=== PATIENT | female | born 1995 | race Caucasian/White ===

== ENCOUNTER 2022-03-02 12:48 | Outpatient (CLI) | payer OTHER, SELFPAY ==
--- NOTE | 2022-03-02 13:00 | CRLHL7_ITS ---
For Patients: As a result of the Century Cures Act, medical imaging exams and procedure reports are released immediately into your electronic medical record. You may view this report before your referring provider. If you have questions, please contact your health care provider. INDICATION: First trimester scan, establish dates. COMPARISON: None. TECHNIQUE: Real-time mars-scale imaging of the pelvis was performed. FINDINGS: There is a twin intrauterine gestation. Regarding twin A, a pole is present measuring 1.5 cm with a sonographic gestational age of 7 weeks 6 days and a sonographic due date of 10/13/2022. heart rate measures 168 beats per minute. Normal appearance of the gestational sac and normal yolk sac measuring 3 millimeters. Regarding twin B, the pole is present measuring 4 millimeters, 6 weeks 0 days, absent heart rate. Gestational sac is small measuring 9 millimeters. Perigestational hemorrhage present measuring 2.8 x 1.2 x 1.9 cm. Corpus luteal cyst left ovary measuring 2.0 x 1.5 x 1.7 cm. Unremarkable right ovary. No ectopic . IMPRESSION: Twin intrauterine gestation. Living twin A, 7 weeks 6 days and sonographic due date 10/13/2022. Nonviable twin B. Left fundal subchorionic hemorrhage measuring 2.8 x 1.2 x 1.9 cm. Dictated by Gibran Mayfield MD @ 03/02/2022 2:48:31 PM (Electronically Signed)
== END 2022-03-02 12:49 | disposition home or self-care (01) ==
LOC: US 12:51
PROVIDERS: Visit Provider Physician Assistant
DX: Z34.91 Encounter for supervision of normal pregnancy, unspecified, first trimester (principal); Z3A.08 8 weeks gestation of pregnancy
CPT/HCPCS: 76817; 86592; 86703; 86762; 86787; 86803; 86850; 86900; 86901; 87086; 87340; 87491; 87591

== ENCOUNTER 2022-04-26 14:32 | Outpatient (CLI) | payer OTHER, SELFPAY ==
[2022-04-26 18:54] LABS: Alanine Aminotransferase* 33 U/L (4-35); Aspartate Amino Transferase* 26 U/L (12-35); Blood Urea Nitrogen* 6 mg/dL (5-24); Creatinine* 0.4 mg/dL (0.5-1.5); Estimated Glomerular Filt Rate 139 ml/min; Uric Acid* 3.5 mg/dL (2.2-8.4)
[2022-04-26 19:44] LABS: Thyroid Stimulating Hormone* < 0.015 uIU/mL (0.270-4.20)
[2022-04-26 19:56] LABS: Total Protein Urine 20 mg/dL
[2022-04-26 19:57] LABS: Creatinine Urine 31.5 mg/dL
== END 2022-04-26 14:33 | disposition home or self-care (01) ==
PROVIDERS: Visit Provider Obstetrics & Gynecology
DX: O10.912 Unspecified pre-existing hypertension complicating pregnancy, second trimester (principal); Z3A.16 16 weeks gestation of pregnancy
CPT/HCPCS: 81420; 82565; 82570; 84156; 84439; 84443; 84450; 84460; 84520; 84550

== ENCOUNTER 2022-04-28 11:43 | Outpatient (CLI) | payer OTHER, SELFPAY ==
[2022-04-30 22:35] LABS: Free T3 4.3 pg/mL (2.5-4.3)
[2022-05-01 01:44] LABS: Thyroid Stimulating IgG (TSI) 0.13 IU/L (<=0.54)
== END 2022-04-28 11:44 | disposition home or self-care (01) ==
LOC: LONREF 11:43
PROVIDERS: Visit Provider Obstetrics & Gynecology
DX: E05.90 Thyrotoxicosis, unspecified without thyrotoxic crisis or storm (principal)
CPT/HCPCS: 84445; 84481

== ENCOUNTER 2022-05-03 08:43 | Outpatient (CLI) | payer OTHER, SELFPAY ==
[2022-05-03 13:48] LABS: Total Protein Urine 17 mg/dL
[2022-05-03 13:52] LABS: Creatinine Urine 49.5 mg/dL
[2022-05-05 13:38] LABS: Collection Time Urine 24 Hours; Total Protein 24 Hour Urine 442 mg/dL; Total Volume 24 Hour Urine 2600 ml; Urine Creatinine mg/24 Hour 0 mg/Day
== END 2022-05-03 08:44 | disposition home or self-care (01) ==
LOC: LONREF 08:43
PROVIDERS: Visit Provider Obstetrics & Gynecology
DX: O10.919 Unspecified pre-existing hypertension complicating pregnancy, unspecified trimester (principal)
CPT/HCPCS: 82570; 84156

== ENCOUNTER 2022-05-26 14:27 | Outpatient (CLI) | payer OTHER, SELFPAY | END 2022-05-26 14:28 | disposition home or self-care (01) | LOC: US 14:27 | PROVIDERS: Visit Provider Pediatrics Neonatal-Perinatal Medicine | DX: O10.912 Unspecified pre-existing hypertension complicating pregnancy, second trimester (principal); Z3A.20 20 weeks gestation of pregnancy | CPT/HCPCS: 76811 ==

== ENCOUNTER 2022-05-26 15:43 | Outpatient (CLI) | payer OTHER, SELFPAY | END 2022-05-26 15:44 | disposition home or self-care (01) | PROVIDERS: Visit Provider Obstetrics & Gynecology | DX: O10.912 Unspecified pre-existing hypertension complicating pregnancy, second trimester (principal); Z3A.20 20 weeks gestation of pregnancy | CPT/HCPCS: 84439; 84443; 84481 ==

== ENCOUNTER 2022-06-21 12:50 | Outpatient (CLI) | payer OTHER, SELFPAY ==
--- NOTE | 2022-06-21 13:00 | CRLHL7_ITS ---
For Patients: As a result of the Cures Act, medical imaging exams and procedure reports are released immediately into your electronic medical record. You may view this report before your referring provider. If you have questions, please contact your health care provider. INDICATION: F/U NOSE/LIPS ?CLEFT LIP/PALATE? COMPARISON: 03/02/2022 TECHNIQUE: Real time mars scale imaging of the fetus was performed. FINDINGS: Sonographic imaging demonstrates a single living intrauterine gestation. Fetus demonstrates a regular cardiac rate of 152 beats per minute. Fetus has a breech position. The placenta lies anteriorly. Amniotic fluid volume appears normal and there is a single deepest vertical pocket: 4.6 cm. The estimated weight is 611gm which lies at the 20th %. BPD 7th percentile. HC less than 3rd percentile. AC 37th percentile. FL 17th percentile. The HC/AC ratio measures 1.06 range (1.05-1.21). IMPRESSION: Sonographic gestational age 23 weeks 2 days and sonographic due date 10/16/2022. Sonographic age is 6 days behind the clinical age. Estimated weight 28th percentile. Abdominal circumference 37th percentile. HC less than 3rd percentile. The nose and lips appear normal, as visualized, without evidence of cleft lip or palate today`s study. Dictated by Gibran Mayfield MD @ 06/22/2022 10:56:30 AM (Electronically Signed)
--- NOTE | 2022-06-21 16:00 | CRLHL7_ITS ---
For Patients: As a result of the Century Cures Act, medical imaging exams and procedure reports are released immediately into your electronic medical record. You may view this report before your referring provider. If you have questions, please contact your health care provider. INDICATION: HYPERTHYROIDISM IN COMPARISON: none TECHNIQUE: Hernández scale and color Doppler images were acquired of the thyroid gland. FINDINGS: The thyroid gland demonstrates normal mildly heterogeneous echogenicity and has a smooth outer contour. The right lobe measures 5.8 x 2.2 x 2.1 cm and the left lobe measures 5.1 x 1.9 x 2.2 cm in size. The isthmus measures 4 millimeters. There is a solid and cystic nodule within the inferior pole of the right thyroid lobe measuring 2.5 x 1.8 x 2.9 cm. Similar solid and cystic nodule midportion left thyroid lobe measuring 2.3 x 1.3 x 1.6 cm. The color Doppler images demonstrate normal vascularity. There is no evidence of cervical lymphadenopathy or parathyroid mass. IMPRESSION: Bilateral TR 3 nodules which could be followed in 1 year. Dictated by Gibran Mayfield MD @ 06/22/2022 11:00:20 AM (Electronically Signed)
== END 2022-06-21 12:51 | disposition home or self-care (01) ==
LOC: US 12:50
PROVIDERS: Visit Provider Obstetrics & Gynecology
DX: O99.282 Endocrine, nutritional and metabolic diseases complicating pregnancy, second trimester (principal); E05.90 Thyrotoxicosis, unspecified without thyrotoxic crisis or storm; Z3A.00 Weeks of gestation of pregnancy not specified
CPT/HCPCS: 76536; 76816; 84439; 84443

== ENCOUNTER 2022-06-21 15:46 | Outpatient (CLI) | payer OTHER, SELFPAY | END 2022-06-21 15:47 | disposition home or self-care (01) | LOC: NFLDREF 06-22 01:15 | PROVIDERS: PCP Obstetrics & Gynecology; Referring Provider Obstetrics & Gynecology; Visit Provider Obstetrics & Gynecology | DX: O99.280 Endocrine, nutritional and metabolic diseases complicating pregnancy, unspecified trimester (principal); E05.90 Thyrotoxicosis, unspecified without thyrotoxic crisis or storm; E04.1 Nontoxic single thyroid nodule; O10.919 Unspecified pre-existing hypertension complicating pregnancy, unspecified trimester | CPT/HCPCS: 84439; 84443; 84481 ==

== ENCOUNTER 2022-08-25 14:00 | Outpatient (CLI) | payer OTHER, SELFPAY ==
--- NOTE | 2022-08-25 14:00 | CRLHL7_ITS ---
For Patients: As a result of the Century Cures Act, medical imaging exams and procedure reports are released immediately into your electronic medical record. You may view this report before your referring provider. If you have questions, please contact your health care provider. INDICATION: CHRONIC HYPERTENSION COMPARISON: 08/18/2022 TECHNIQUE: Real time mars scale imaging of the fetus was performed. Without non-stress testing. FINDINGS: Sonographic imaging demonstrates a single living intrauterine gestation. Fetus demonstrates a regular cardiac rate of 149 beats per minute. Fetus has a vertex position. The amniotic fluid volume appears upper limits of normal and there is a single deepest pocket measurement of 8.4 cm. SANTOS 23.4 cm. The fetus was active and demonstrated normal breathing movements. There was normal flexion and extension of the trunk and extremities. IMPRESSION: Normal biophysical profile score of 8 out of 8. Dictated by Gibran Mayfield MD @ 08/25/2022 3:06:14 PM (Electronically Signed)
== END 2022-08-25 14:01 | disposition home or self-care (01) ==
LOC: US 14:01
PROVIDERS: Visit Provider Obstetrics & Gynecology
DX: O10.919 Unspecified pre-existing hypertension complicating pregnancy, unspecified trimester (principal)
CPT/HCPCS: 76819

== ENCOUNTER 2022-09-02 12:54 | Outpatient (CLI) | payer OTHER, SELFPAY ==
--- NOTE | 2022-09-02 13:00 | CRLHL7_ITS ---
For Patients: As a result of the Century Cures Act, medical imaging exams and procedure reports are released immediately into your electronic medical record. You may view this report before your referring provider. If you have questions, please contact your health care provider. INDICATION: Chronic hypertension. Assess well-being. COMPARISON: August 25, 2022. August 18, 2022. TECHNIQUE: Real time mars scale imaging of the fetus was performed. Without non-stress testing. FINDINGS: Sonographic imaging demonstrates a single living intrauterine gestation. Fetus demonstrates a regular cardiac rate of 159 beats per minute. Fetus has a vertex orientation with spine to the maternal left side. The amniotic fluid volume appears normal and there is a single deepest pocket measurement of 7.3 cm. The fetus was active and demonstrated normal breathing movements. There was normal flexion and extension of the trunk and extremities. IMPRESSION: Normal biophysical profile score of 8 out of 8. Dictated by Nils Cox MD @ 09/02/2022 2:34:12 PM (Electronically Signed)
== END 2022-09-02 12:55 | disposition home or self-care (01) ==
LOC: US 12:54
PROVIDERS: Visit Provider Obstetrics & Gynecology
DX: O10.919 Unspecified pre-existing hypertension complicating pregnancy, unspecified trimester (principal)
CPT/HCPCS: 76819

== ENCOUNTER 2022-09-09 13:46 | Outpatient (CLI) | payer OTHER, SELFPAY ==
--- NOTE | 2022-09-09 14:00 | CRLHL7_ITS ---
For Patients: As a result of the Century Cures Act, medical imaging exams and procedure reports are released immediately into your electronic medical record. You may view this report before your referring provider. If you have questions, please contact your health care provider. INDICATION: CHRONIC HTN COMPARISON: 09/02/2022 TECHNIQUE: Real time mars scale imaging of the fetus was performed. Without non-stress testing. FINDINGS: Sonographic imaging demonstrates a single living intrauterine gestation. Fetus demonstrates a regular cardiac rate of 159 beats per minute. Fetus has a vertex position. The amniotic fluid volume appears normal and there is a single deepest pocket measurement of 10.3 cm. SANTOS 21.0 cm. The fetus was active and demonstrated normal breathing movements. There was normal flexion and extension of the trunk and extremities. IMPRESSION: Normal biophysical profile score of 8 out of 8. Dictated by Gibran Mayfield MD @ 09/09/2022 3:06:43 PM (Electronically Signed)
== END 2022-09-09 13:47 | disposition home or self-care (01) ==
PROVIDERS: Visit Provider Obstetrics & Gynecology
DX: O10.919 Unspecified pre-existing hypertension complicating pregnancy, unspecified trimester (principal)
CPT/HCPCS: 76819; 87081; 87653

== ENCOUNTER 2022-09-13 13:49 | Outpatient (CLI) | payer OTHER, SELFPAY ==
--- NOTE | 2022-09-13 14:00 | CRLHL7_ITS ---
For Patients: As a result of the Century Cures Act, medical imaging exams and procedure reports are released immediately into your electronic medical record. You may view this report before your referring provider. If you have questions, please contact your health care provider. INDICATION: Hypertension TECHNIQUE: Real time mars scale imaging of the fetus was performed. COMPARISON: 09/09/2022 FINDINGS: Sonographic imaging demonstrates a single living intrauterine gestation. Fetus demonstrates a regular cardiac rate of 154 beats per minute. Fetus has a vertex position. The placenta lies anterior. Amniotic fluid volume appears normal and there is a single deepest pocket of 5.8 cm. The estimated weight is 2669gm which lies at the 31st %. On the prior OB ultrasound dated 08/18/2022 the estimated weight was at the 44th percentile. BPD 15th percentile. HC 51st percentile. AC 37th percentile. FL 28th percentile. The fetus was active and demonstrated normal breathing movements. There was normal flexion and extension of the trunk and extremities. IMPRESSION: Normal biophysical profile score 8/8. Sonographic gestational age 35 weeks 4 days and sonographic due date 10/14/2022. Good correlation with dates. Normal interval growth. Estimated weight 31st percentile. Abdominal circumference 37th percentile. Dictated by Gibran Mayfield MD @ 09/13/2022 3:27:02 PM (Electronically Signed)
== END 2022-09-13 13:50 | disposition home or self-care (01) ==
LOC: US 13:50
PROVIDERS: Visit Provider Obstetrics & Gynecology
DX: O10.913 Unspecified pre-existing hypertension complicating pregnancy, third trimester (principal); Z3A.35 35 weeks gestation of pregnancy
CPT/HCPCS: 76816; 76819

== ENCOUNTER 2022-09-23 13:49 | Outpatient (CLI) | payer OTHER, SELFPAY ==
--- NOTE | 2022-09-23 14:00 | CRLHL7_ITS ---
For Patients: As a result of the Century Cures Act, medical imaging exams and procedure reports are released immediately into your electronic medical record. You may view this report before your referring provider. If you have questions, please contact your health care provider. INDICATION: pre-existing hypertension COMPARISON: 09/13/2022 TECHNIQUE: Real time mars scale imaging of the fetus was performed. Without non-stress testing. FINDINGS: Sonographic imaging demonstrates a single living intrauterine gestation. Fetus demonstrates a regular cardiac rate of 163 beats per minute. Fetus has a vertex position. The amniotic fluid volume appears normal and there is a single deepest pocket measurement of 8.7 cm. The fetus was active and demonstrated normal breathing movements. There was normal flexion and extension of the trunk and extremities. IMPRESSION: Normal biophysical profile score of 8 out of 8. Dictated by Gibran Mayfield MD @ 09/23/2022 3:56:47 PM (Electronically Signed)
== END 2022-09-23 13:50 | disposition home or self-care (01) ==
LOC: US 13:50
PROVIDERS: Visit Provider Obstetrics & Gynecology
DX: O10.919 Unspecified pre-existing hypertension complicating pregnancy, unspecified trimester (principal)
CPT/HCPCS: 76819

== ENCOUNTER 2022-09-26 15:58 | Inpatient (IN) | payer OTHER, SELFPAY ==
[2022-09-26] VITALS (16 sets, daily range): BP systolic 119–127; BP diastolic 66–77; PULSE 78–93; RESP 16; TEMP 36.8; O2SAT 90–98; BMI 40.8
[2022-09-26] MEDS: miSOPROStoL 25 MCG/0.25 TABLET VAGINAL ×2 (16:54→21:43)
--- NOTE | 2022-09-26 17:41 | P.LDBA_ITS ---
Subjective History of Present Illness Time Seen by Provider: 17:00 Date Seen: 09/26/22 Narrative: Patient is being admitted to Labor and Delivery for induction of labor secondary to chronic hypertension. She is a 27 year old at 38 0/7 weeks gestation. Her full history and physical was dictated by Dr. Talley on 09/13/2022. Please see this for details. G1 Spouse: Cosme. Baby: Girl! Wren[place] 1. DI/DI twin gestation, spontaneously reduced to alzo Perinatology referral: Follow-up first-trimester ultrasound 03/19/2022: Small gestational sac with no visible 2nd embryo. Intrauterine 10 weeks and 2 days, measurements consistent with established dates for viable embryo. 2. Obesity, BMI 36.5 Hgb A1-C: 5.3% 3. ASCUS Pap with positive HPV, neg for 16 and 18 * Colposcopy 04/26/22: Normal findings * Repeat Pap with HPV testing 4. Suspected chronic HTN. Baseline labs 04/26/22: All normal, aside from protein to creatinine ratio 0.6. * 24 hour urine : 442 mg, elevated at baseline. * RN visit for BP education scheduled * Started on labetalol 100 mg BID on 04/26/22. Adjust to maintain normotensive. * Level 2 US: 05/26/2022, EFW 16th percentile. Growth ultrasound recommended in [address] Parker. * Monthly US for growth (ordered for 28 weeks) * 28 5/7 weeks (07/23/22): cephalic, SDP 6.5 cm, EFW 26%, BPD 3%, HC 11%, AC 28%, FL 41%. * 32 weeks: EFW 1999 g (44%), BPD 12%, HC 16%, AC 76%, FL 18%, SANTOS 20.7 cm. * Weekly testing beginning 32 weeks * Delivery at 37 0/7 - 39 6/7 weeks, unless HTN worsens. Tentatively scheduled on 09/27 at 38w1d 5. Hyperthyroidism on labs from 08/04/22. Subclinical hyperthyroidism on labs from 04/26/22 * Free T3 upper limit of normal, thyroid stimulating antibodies normal. * Repeat TSH, free T3 and free T4 06/21/22: TSH <0.015, free T4 normal at 1.06, normal total T3. * Refer to endocrine for overt hyperthyroidism * Two thyroid nodules on US 06/21/22. Surgery consulted. FNA of larger nodule by Dr. Richmond 08/06/22: BENIGN Colloid nodule with cystic degeneration. * Repeat TSH, free T4 and total T3 at 30 week visit 08/04/22: TSH <0.015, free T4 1.53, total T3 375 (elevated). * Referred to endocrine on 08/12/22: Pt. reports virtual visit on 08/20. Labs drawn 08/21. No Graves Disease. * Per [facility]: Labs showed mild hyperthyroidism. Patient is has normal Free T4 and clinically euthyroid. Endocrine will follow up with nilam thornton in q1-2 weeks. Currently holding off on antithyroid therapy. * With regard to her thyroid nodule: plan to obtain thyroid ultrasound after delivery. 6. Possible midline/right cleft lip seen on level 2 ultrasound * Reassess at follow-up ultrasound in 4 weeks: normal lips. EFW 20%, PBD 7%, HC<3%, AC 37%, FL 17% 7. Velamentous cord insertion * Growth ultrasound at 32 weeks: EFW 1999 g (44%), BPD 12%, HC 16%, AC 76%, FL 18%, SANTOS 20.7 cm. 8. Elevated 1 hr GTT = 147. 3 hr GTT entirely normal. Flu shot: 03/30/22 COVID: Due for booster Tdap: 08/04/22 OB - Problem Based A/P Delivery/Labor/Induction Plan Plan: induction Induction method: per misoprostol protocol OB Result Labs Blood Type: O (+) positive Rubella: immune RPR/VDLR: nonreactive GBS Status: negative HBsAG: negative OB Exam Physical Exam Vital signs: Pulse BP Pulse Ox 93 119/77 97 09/26/22 16:16 09/26/22 16:16 09/26/22 16:19 Detailed Labor and Delivery Exam Patient Gravid: Yes Dilation (cm): 1 Effacement (%): 40 Cervix position: posterior Consistency: firm Fetus (Single) Station: -3 (Ballotable) Amniotic Membrane Status: intact Heart Rate Baseline: 140 Monitor Accelerations: Present Monitor Decelerations: None Usp Variability: Moderate (6-25)
[2022-09-26 19:30] LABS: Basophils Absolute Auto 0.01 K/uL (0.00-0.30); Basophils Percent Auto 0.1 % (0.0-3.0); Eosinophils Absolute Auto 0.09 K/uL (0.00-0.50); Eosinophils Percent Auto 0.8 % (0.0-7.0); Hematocrit 34.8 % (33.0-51.0); Hemoglobin* 11.4 gm/dL (12.0-16.0); Immature Granulocytes Abs Auto 0.01 K/uL (0.00-0.30); Immature Granulocytes Pct Auto 0.1 %; Lymphocytes Percent Auto 15.1 % (20-44); Mean Corpuscular HGB Conc 33 gm/dL (32-36); Mean Corpuscular Hemoglobin 29 pg (26-34); Mean Corpuscular Volume 88 fL (80-100); Monocytes Percent Auto 7.6 % (0.0-11.0); Neutrophils Percent Auto 76.3 % (42.0-72.0); Platelet Count* 176 K/uL (140-440); RDW Coefficient of Variation % 13.2 % (11.5-15.5); Red Blood Count 3.97 m/uL (4.00-5.20); White Blood Count* 10.74 K/uL (4.50-11.00)
[2022-09-26 19:32] LABS: Slide Review Reflex No
[2022-09-26] MEDS: hydrOXYzine pamoate 25 MG CAPSULE 100 MG PO (20:57)
[2022-09-26] MEDS: LABETALOL HCL 100 MG TABLET PO (20:59)
[2022-09-26] MEDS: MORPHINE 10 MG/ML inj IM (21:00)
[2022-09-27] VITALS (99 sets, daily range): BP systolic 109–146; BP diastolic 53–92; PULSE 76–115; RESP 16; TEMP 36.5–38; O2SAT 94–100
[2022-09-27] MEDS: LACTATED RINGERS 1000 ML 1,000 ML 125 ML IV ×4 (04:24→10:32)
--- NOTE | 2022-09-27 06:59 | PM.OBPNL ---
Subjective Time Seen by Provider: 06:59 Date Seen: 09/27/22 Narrative: Patient is comfortable this morning. Only had 2 doses misoprostol overnight due to periodic variables and periods of decreased variability. Objective Vital Signs: Last Vital Signs Temp 98.3 F 09/27/22 04:03 Pulse 93 09/27/22 04:03 Resp 16 09/27/22 04:03 BP 126/70 09/27/22 04:03 Pulse Ox 96 09/27/22 04:04 Pelvic Exam Dilation (cm): 2 Effacement (%): 50 Station: -2 Comments: mid position, soft Contractions Monitor mode: External Contraction Frequency: 2-4 minutes Contraction pattern: Irregular Contraction intensity: Mild Assessment Assessment: induction ongoing Station: -2 (Ballotable) Status: Category l Heart Rate Baseline: 140 Monitor Accelerations: Present Monitor Decelerations: None Plan Plan: Hendrix score 8. Will start pitocin.
[2022-09-27] MEDS: OXYTOCIN 30 unit/500 ML in NS 30 UNIT/500 ML BAG IVPB ×2 (07:33→12:37)
--- NOTE | 2022-09-27 09:47 | P.OBPN_ITS ---
Subjective Time Seen by Provider: 08:30 Date Seen: 09/27/22 Objective Vital Signs: Last Vital Signs Temp 98.9 F 09/27/22 07:20 Pulse 96 09/27/22 09:45 Resp 16 09/27/22 07:20 BP 127/66 09/27/22 09:45 Pulse Ox 99 09/27/22 09:43 Pelvic Exam Dilation (cm): 3 Effacement (%): 80 Station: -2 Contractions Monitor mode: External Contraction pattern: Irregular Contraction intensity: Mild Assessment Station: -2 (Ballotable) Amniotic Membrane Status: SROM (0815) Status: Category l Heart Rate Baseline: 140 Interior Plant Caretaker Variability: Moderate (6-25) Monitor Accelerations: Present Monitor Decelerations: None Plan Plan: - Assessed patient due to SROM - Scalp clip requested as it was very difficult to trace fetus with EFM. Discussed with patient about risk, benefits, and alternatives of scalp clip. Verbal consent obtained and scalp clip was placed without complications. - Patient currently comfortable but will eventually desire epidural. Epidural PRN.
[2022-09-27] MEDS: ROPIVACAINE 0.2% 100 ml 100 ML 12 MG EPIDURAL (09:50)
--- NOTE | 2022-09-27 09:55 | P.ANBPRC_ITS ---
[facility] Surgical History History of tonsillectomy ?Z90.89 - Acquired absence of other organs (ICD-10) Social History Narrative: insurance sales professional. . Nonsmoker. What is your current living situation?: I presently have a place to live Problems where you live: pests, such as bugs, ants, or mice In the past 12 months, utilities in danger of being shut off: no In the past 12 mos, have been you worried that your food would run out before you had money to buy more?: never true In the past 12 mos, the food you bought just didn't last and you didn't have m oney to buy more?: never true Smoking Status: Never smoker How often does anyone, including family, friends and others, physically hurt you : never How often does anyone, including family, friends and others, insult or talk down to you: never How often does anyone, including family, friends and others, threaten you with harm: never How often does anyone, including family, friends and others, scream or curse at you: never Little interest or pleasure in doing things: several days Feeling down, depressed, or hopeless: not at all Meds Home Medications and Allergies Home Medications Medication Instructions Recorded Confirmed Type aspirin 81 mg capsule 81 mg PO QDAY 04/26/22 09/26/22 History prenat.vits,tee,umw-kllo-bxilb 1 tab PO QDAY 04/26/22 09/26/22 History calcium carbonate 200 mg calcium 200 mg PO BID 06/21/22 09/26/22 History (500 mg) chewable tablet (Tums) Allergies Allergy/AdvReac Type Severity Reaction Status Date / Time No Known Drug Allergies Allergy Verified 09/23/22 14:59 Results Labs Labs: Laboratory Results - last 24 hr 09/26/22 19:23 WBC 10.74 RBC 3.97 L Hgb 11.4 L Hct 34.8 MCV 88 MCH 29 MCHC 33 RDW Coeff of Rashi 13.2 Plt Count 176 Neut % (Auto) 76.3 H Lymph % (Auto) 15.1 L [place] % (Auto) 7.6 Eos % (Auto) 0.8 Baso % (Auto) 0.1 Neut # (Auto) 8.20 H Lymph # (Auto) 1.60 [place] # (Auto) 0.80 Eos # (Auto) 0.09 Baso # (Auto) 0.01 Abs Immat Gran (auto) 0.01 Imm/Tot Granulo (auto) 0.1 Blood Type O Positive Antibody Screen NEGATIVE Vital Signs Vital Signs: Last Vital Signs Temp 98.9 F 09/27/22 07:20 Pulse 90 09/27/22 09:53 Resp 16 09/27/22 07:20 BP 126/61 09/27/22 09:53 Pulse Ox 98 09/27/22 09:53 Weight: 100.743 kg Height: 157.48 cm Anesthesia Procedures Epidural Insertion Patient Location: OB Start Time: 09:00 Stop Time: 10:00 Start Date: 09/27/22 Stop Date: 09/27/22 Reason for Block: procedure for pain Patient Position: sitting Performed By: Kavita Salazar Preanesthetic Checklist: IV checked, risks and benefits discussed, monitors and equipment checked, timeout performed and anesthesia consent Prep: chlorhexidine gluconate Monitoring: blood pressure monitoring, continuous pulse oximetry and heart rate Approach: midline Vertebral Space: lumbar (1-5) Epidural Technique: CASH saline Needle Type: Tuohy needle Injection Technique: continuous catheter Needle gauge: 17 Needle Length (cm): 10 cm Needle Insertion Depth (cm): 8 Catheter Gauge: 19 Catheter Type: multi-orifice Catheter at skin depth (cm): 14 Test Dose Result: negative and lidocaine 1.5% with epinephrine 1 to 200,000
[2022-09-27] MEDS: PHENYLEPHRINE 100 MCG/ML SYRINGE IVP ×2 (10:06→10:10)
--- NOTE | 2022-09-27 13:32 | PC.SOCIAL ---
environmental services assistant referral on pt. no needs identified.
[2022-09-27] MEDS: OXYTOCIN 30 unit/500 ML in NS 30 UNIT/500 ML BAG 300 UNIT IVPB (17:29)
--- NOTE | 2022-09-27 18:59 | W.PM.VAGDEL1 ---
Procedure Delivery date: 09/27/22 Procedure Done: Global Procedure Details: Margo is a 27 year-old G 1P 0 now 1 admitted on 09/26/2022 at 38 Weeks, 0Days gestation for IOL due to worsening chronic hypertension. SROM occurred at 0815 on 09/27/2022 with clear fluid. Labor Analgesia: Epidural Pitocin: Yes Labor onset: 09/27/2022 at 1414. Complete: 09/27/2022 at 1516. Pushin09/27/2022 at 1520. heart tones during second stage were: Cat II due to tachycardia, otherwise, moderate variability and multiple accels. At 1728 a viable female infant delivered in vertex OA presentation over intact perineum via spontaneous vaginal delivery. The infant was placed on maternal abdomen. Cord was clamped and cut after a 30 second delay. Nose and mouth were bulb suctioned. weight pending. 7 at 1 minute and 9 at 5 minutes. Shoulder dystocia: No. Nuchal cord: No Placenta delivered spontaneously and complete at 1731 with a 3 vessel cord - velamentous cord insertion. Laceration(s): None. R Blood loss: 50 mL. Blood loss measurement type: Estimated Sponge and needles counts are correct. Specimen: Placenta Mother and infant were stable after delivery. 's name: Lesvia Estimated blood loss (mL): 50 Infant Gender: Female presentation: vertex Placental Delivery Description: Spontaneous Cord Description: 3 Vessels total score - 1 minute: 7 total score - 5 minute: 9
[2022-09-27] MEDS: IBUPROFEN 600 MG TABLET PO (19:02)
[2022-09-27] MEDS: LABETALOL HCL 100 MG TABLET PO (21:47)
[2022-09-28 04:15] VITALS: BP 120/78; PULSE 93; RESP 16; TEMP 36.6
[2022-09-28 06:58] LABS: Hemoglobin* 10.8 gm/dL (12.0-16.0)
[2022-09-28 07:39] VITALS: BP 124/83; PULSE 89; RESP 16; TEMP 36.5
--- NOTE | 2022-09-28 08:48 | P.DS_ITS ---
DS: Providers Provider Time Seen by Provider: 08:48 Date Seen: 09/28/22 Date of admission: 09/26/22 15:58 Primary care physician: Not a Local Provider Admitting Clinician: Marlene Talley MD Consults: 09/26/22 16:37 Consult to [employer] Field Technician [CONS] Routine Comment: Reason for Consult:: Psycho-Social Needs Attending Physician on discharge: Marlene Talley MD Date of Discharge: 09/28/22 DS: Diagnosis Discharge Diagnosis (1) NVD (normal vaginal delivery): Status: Acute (2) Lactating mother: Status: Acute (3) Chronic hypertension affecting : Status: Acute Exam Narrative: Exam Narrative: VSS, afebrile GENERAL APPEARANCE: ?normal affect, alert, no distress MOOD: ?appropriate HEENT: normocephalic, neck supple, full ROM CHEST: ?Symmetrical chest wall movement. ?Normal respiratory effort. ?Clear to auscultation HEART: ?regular rate and rhythm ABDOMEN: ?soft, non-tender. Uterine fundus is firm, at Umbilicus, Midline and is appropriate for the stage of recovery. ?Bowel sounds present. PERINEUM: ?[mild] edema of the perineum, there are no laceraions EXTREMITIES: ?normal and +1 edema Const: Vital Signs, click to edit/add: Vital Signs - 24 hr 09/27/22 09:27 09/27/22 09:28 09/27/22 09:29 Temperature Pulse Rate 113 H 94 Pulse Rate [Blood Pressure Cuff] Respiratory Rate Blood Pressure 138/87 145/82 H Blood Pressure [Le ft Arm] Pulse Oximetry 96 Oxygen Delivery Me thod 09/27/22 09:31 09/27/22 09:33 09/27/22 09:35 Temperature Pulse Rate 103 H 99 96 Pulse Rate [Blood Pressure Cuff] Respiratory Rate Blood Pressure 142/77 H 137/75 142/74 H Blood Pressure [Le ft Arm] Pulse Oximetry 97 Oxygen Delivery Me thod 09/27/22 09:37 09/27/22 09:38 09/27/22 09:39 Temperature Pulse Rate 95 94 Pulse Rate [Blood Pressure Cuff] Respiratory Rate Blood Pressure 136/66 144/71 H Blood Pressure [Le ft Arm] Pulse Oximetry 97 Oxygen Delivery Me thod 09/27/22 09:41 09/27/22 09:43 09/27/22 09:45 Temperature Pulse Rate 87 95 96 Pulse Rate [Blood Pressure Cuff] Respiratory Rate Blood Pressure 137/68 126/65 127/66 Blood Pressure [Le ft Arm] Pulse Oximetry 99 Oxygen Delivery Me thod 09/27/22 09:47 09/27/22 09:48 09/27/22 09:49 Temperature Pulse Rate 94 93 Pulse Rate [Blood Pressure Cuff] Respiratory Rate Blood Pressure 127/64 127/61 Blood Pressure [Le ft Arm] Pulse Oximetry 98 Oxygen Delivery Me thod 09/27/22 09:51 09/27/22 09:53 09/27/22 09:55 Temperature Pulse Rate 100 90 100 Pulse Rate [Blood Pressure Cuff] Respiratory Rate Blood Pressure 126/63 126/61 125/62 Blood Pressure [Le ft Arm] Pulse Oximetry 98 Oxygen Delivery Me thod 09/27/22 09:57 09/27/22 09:58 09/27/22 09:59 Temperature Pulse Rate 96 86 Pulse Rate [Blood Pressure Cuff] Respiratory Rate Blood Pressure 123/59 L 123/60 Blood Pressure [Le ft Arm] Pulse Oximetry 99 Oxygen Delivery Me thod 09/27/22 10:01 09/27/22 10:03 09/27/22 10:05 Temperature Pulse Rate 100 91 85 Pulse Rate [Blood Pressure Cuff] Respiratory Rate Blood Pressure 115/56 L 118/59 L 126/59 L Blood Pressure [Le ft Arm] Pulse Oximetry 98 Oxygen Delivery Me thod 09/27/22 10:07 09/27/22 10:08 09/27/22 10:12 Temperature Pulse Rate 91 85 Pulse Rate [Blood Pressure Cuff] Respiratory Rate Blood Pressure 124/64 146/65 H Blood Pressure [Le ft Arm] Pulse Oximetry 99 Oxygen Delivery Me thod 09/27/22 10:13 09/27/22 10:15 09/27/22 10:17 Temperature Pulse Rate 107 H 93 93 Pulse Rate [Blood Pressure Cuff] Respiratory Rate Blood Pressure 121/58 L 112/57 L 128/56 L Blood Pressure [Le ft Arm] Pulse Oximetry 96 Oxygen Delivery Me thod 09/27/22 10:18 09/27/22 10:19 09/27/22 10:21 Temperature Pulse Rate 93 92 Pulse Rate [Blood Pressure Cuff] Respiratory Rate Blood Pressure 129/63 125/60 Blood Pressure [Le ft Arm] Pulse Oximetry 97 Oxygen Delivery Me thod 09/27/22 10:23 09/27/22 10:25 09/27/22 10:28 Temperature Pulse Rate 96 93 Pulse Rate [Blood Pressure Cuff] Respiratory Rate Blood Pressure 123/59 L 128/64 Blood Pressure [Le ft Arm] Pulse Oximetry 97 96 Oxygen Delivery Me thod 09/27/22 10:33 09/27/22 10:35 09/27/22 10:38 Temperature Pulse Rate 103 H Pulse Rate [Blood Pressure Cuff] Respiratory Rate Blood Pressure 126/57 L Blood Pressure [Le ft Arm] Pulse Oximetry 96 94 95 Oxygen Delivery Me thod 09/27/22 10:43 09/27/22 10:47 09/27/22 10:48 Temperature Pulse Rate 101 H Pulse Rate [Blood Pressure Cuff] Respiratory Rate Blood Pressure 125/60 Blood Pressure [Le ft Arm] Pulse Oximetry 100 97 Oxygen Delivery Me thod 09/27/22 10:53 09/27/22 10:57 09/27/22 10:58 Temperature Pulse Rate 99 Pulse Rate [Blood Pressure Cuff] Respiratory Rate Blood Pressure 119/59 L Blood Pressure [Le ft Arm] Pulse Oximetry 98 96 Oxygen Delivery Me thod 09/27/22 11:03 09/27/22 11:08 09/27/22 11:09 Temperature 98.7 F Pulse Rate 93 Pulse Rate [Blood Pressure Cuff] Respiratory Rate Blood Pressure 122/59 L Blood Pressure [Le ft Arm] Pulse Oximetry 96 96 Oxygen Delivery Me thod 09/27/22 11:13 09/27/22 11:18 09/27/22 11:20 Temperature Pulse Rate 90 Pulse Rate [Blood Pressure Cuff] Respiratory Rate Blood Pressure 121/57 L Blood Pressure [Le ft Arm] Pulse Oximetry 95 96 94 Oxygen Delivery Me thod 09/27/22 11:28 09/27/22 11:37 09/27/22 11:48 Temperature Pulse Rate 109 H 96 95 Pulse Rate [Blood Pressure Cuff] Respiratory Rate Blood Pressure 126/92 H 117/56 L 121/62 Blood Pressure [Le ft Arm] Pulse Oximetry Oxygen Delivery Me thod 09/27/22 11:57 09/27/22 12:07 09/27/22 12:17 Temperature Pulse Rate 103 H 100 109 H Pulse Rate [Blood Pressure Cuff] Respiratory Rate Blood Pressure 111/61 115/59 L 111/63 Blood Pressure [Le ft Arm] Pulse Oximetry Oxygen Delivery Ks thod 09/27/22 12:28 09/27/22 12:37 09/27/22 12:47 Temperature Pulse Rate 100 100 107 H Pulse Rate [Blood Pressure Cuff] Respiratory Rate Blood Pressure 124/57 L 124/59 L 121/59 L Blood Pressure [Le ft Arm] Pulse Oximetry Oxygen Delivery Ks thod 09/27/22 12:57 09/27/22 13:07 09/27/22 13:17 Temperature Pulse Rate 107 H 111 H 109 H Pulse Rate [Blood Pressure Cuff] Respiratory Rate Blood Pressure 128/61 126/60 122/58 L Blood Pressure [Le ft Arm] Pulse Oximetry Oxygen Delivery Ks thod 09/27/22 13:36 09/27/22 13:47 09/27/22 13:58 Temperature Pulse Rate 112 H 97 91 Pulse Rate [Blood Pressure Cuff] Respiratory Rate Blood Pressure 115/58 L 115/57 L 124/56 L Blood Pressure [Le ft Arm] Pulse Oximetry Oxygen Delivery Ks thod 09/27/22 14:07 09/27/22 14:17 09/27/22 14:28 Temperature 98.7 F Pulse Rate 108 H 96 93 Pulse Rate [Blood Pressure Cuff] Respiratory Rate Blood Pressure 111/54 L 109/53 L 120/56 L Blood Pressure [Le ft Arm] Pulse Oximetry Oxygen Delivery Ks thod 09/27/22 14:38 09/27/22 14:47 09/27/22 14:58 Temperature Pulse Rate 104 H 90 93 Pulse Rate [Blood Pressure Cuff] Respiratory Rate Blood Pressure 113/59 L 125/58 L 125/60 Blood Pressure [Le ft Arm] Pulse Oximetry Oxygen Delivery Ks thod 09/27/22 15:07 09/27/22 15:17 09/27/22 15:28 Temperature Pulse Rate 96 96 101 H Pulse Rate [Blood Pressure Cuff] Respiratory Rate Blood Pressure 127/58 L 133/75 127/64 Blood Pressure [Le ft Arm] Pulse Oximetry Oxygen Delivery Ks thod 09/27/22 15:34 09/27/22 15:37 09/27/22 16:05 Temperature 98.0 F Pulse Rate 96 96 Pulse Rate [Blood Pressure Cuff] Respiratory Rate Blood Pressure 128/58 L 123/59 L Blood Pressure [Le ft Arm] Pulse Oximetry Oxygen Delivery Ks thod 09/27/22 16:47 09/27/22 17:08 09/27/22 17:36 Temperature 98.9 F Pulse Rate 84 93 Pulse Rate [Blood Pressure Cuff] Respiratory Rate Blood Pressure 129/69 134/66 Blood Pressure [Le ft Arm] Pulse Oximetry Oxygen Delivery Me thod 09/27/22 17:40 09/27/22 17:49 09/27/22 18:04 Temperature 100.4 F H Pulse Rate 106 H 93 Pulse Rate [Blood Pressure Cuff] Respiratory Rate Blood Pressure 131/67 138/64 Blood Pressure [Le ft Arm] Pulse Oximetry Oxygen Delivery Me thod 09/27/22 18:19 09/27/22 18:34 09/27/22 18:49 Temperature Pulse Rate 99 100 105 H Pulse Rate [Blood Pressure Cuff] Respiratory Rate Blood Pressure 138/65 134/64 137/66 Blood Pressure [Le ft Arm] Pulse Oximetry Oxygen Delivery Ks thod 09/27/22 19:04 09/27/22 19:19 09/27/22 19:34 Temperature Pulse Rate 96 82 99 Pulse Rate [Blood Pressure Cuff] Respiratory Rate Blood Pressure 133/64 142/70 H 141/71 H Blood Pressure [Le ft Arm] Pulse Oximetry Oxygen Delivery Ks thod 09/27/22 19:48 09/27/22 19:49 09/27/22 21:47 Temperature 98.1 F 97.7 F Pulse Rate 115 H Pulse Rate [Blood Pressure Cuff] 90 Respiratory Rate 16 Blood Pressure 134/74 Blood Pressure [Le ft Arm] 119/76 Pulse Oximetry Oxygen Delivery Me thod Room Air 09/27/22 23:24 09/28/22 04:15 09/28/22 07:39 Temperature 97.7 F 97.9 F 97.7 F Pulse Rate Pulse Rate [Blood Pressure Cuff] 89 93 89 Respiratory Rate 16 16 16 Blood Pressure Blood Pressure [Le ft Arm] 116/76 120/78 124/83 Pulse Oximetry Oxygen Delivery Me thod Room Air Room Air Room Air Documenting provider has reviewed patient's vital signs: yes OB - DS: Summary Hospital Course Hospital Course: Margo is a 27 y.o. G 1 P 1 who was admitted to [facility]OL for chronic hypertension. ?She had an uncomplicated NVD The patient feels well. ?The pain is well controlled with current medications. ?She has no new complaints. ?She is breast feeding and reports things are going well.? the patient has done well.? Vitals have been stable.? She has remained afebrile.? Has a good appetite, is tolerating a general diet. ?She is voiding without difficulty.? She is passing gas and has not had a bowel movement.? She is ambulating and denies any dizziness.? Has Small amount of rubra lochia. She is planning IUD for prevention. Problems: none plan: Discharge home with baby. Follow up in 2 weeks and 6 weeks. , may follow up with if needed Chronic hypertension -continue labatalol at this time -follow up in 3-5 days -continue to check BPs twice a day, call for 140/90 or higher, or if symptoms occur Peripartum Data delivery method: Vaginal Laceration description: None complications: none [employer] Infant Gender: Female Infant Discharge Plan: Home Status at Discharge Functional status at discharge: independent ambulation Overall status at discharge: patient is progressing back to baseline Time Spent with Patient Time attestation: Total time spent providing and/or coordinating discharge services: Time spent: Less than 30 minutes Discharge Plan Discharge Disposition: Home, Self-Care Date of Admission: 09/26/22 15:58 Attending Provider on Discharge: Lissa Serrato Primary Care Provider: Provider,Not a Local Condition: Stable Anticipated Discharge Date/Time: 09/28/22 20:00 Discharge Medications: New docusate sodium 100 mg Capsule 100 mg PO BID PRNQty: 100 0RF Rx Instructions: Take 1 cap 1-2 times a day as needed for constipation ibuprofen 600 mg Tablet 600 mg PO Q6H PRNQty: 60 0RF labetalol 100 mg Tablet 100 mg PO BID Qty: 40 0RF Continued prenat.vits,tee,[id number] Tablet 1 tab PO QDAY labetalol 100 mg tablet 100 mg PO BID Qty: 180 3RF calcium carbonate [Tums] 200 mg calcium (500 mg) tablet,chewable 200 mg PO BID Discontinued aspirin 81 mg capsule 81 mg PO QDAY Discharge Orders: Discharge Order (Routine); Ordered 09/28/22 Ordered By: Lissa Serrato Patient Education: OB Over the Counter Medication Information, OB Vaginal/Breast Feeding Additional Instructions: Follow up in 3-5 days for a blood pressure check, can be nurse only visit Continue to check blood pressures twice a day. Call if 140/90 or higher, or is headache, vision changes, right sided pain occur Continue labetalol at this time. Follow up in 2 weeks and 6 weeks. Activity Level: Activity as Tolerated Discharge Diet: Regular Follow Up Appointments: Provider,Not a Local [Primary Care Provider] - Forms: [employer] Info Instructions
[2022-09-28] MEDS: LABETALOL HCL 100 MG TABLET PO (08:50)
[2022-09-28 13:00] VITALS: BP 131/85; PULSE 94; RESP 16; TEMP 36.3
[2022-09-28 15:57] VITALS: BP 124/80; PULSE 116; RESP 16; TEMP 36.6
== END 2022-09-28 18:20 | disposition home or self-care (01) | DRG 807 ==
PROVIDERS: Obstetrics & Gynecology; Admitting Provider Obstetrics & Gynecology; Visit Provider Obstetrics & Gynecology
DX: O16.4 Unspecified maternal hypertension, complicating childbirth (principal); Z37.0 Single live birth; O76 Abnormality in fetal heart rate and rhythm complicating labor and delivery; O43.123 Velamentous insertion of umbilical cord, third trimester; O99.284 Endocrine, nutritional and metabolic diseases complicating childbirth; E05.90 Thyrotoxicosis, unspecified without thyrotoxic crisis or storm; O99.214 Obesity complicating childbirth; E66.9 Obesity, unspecified; Z3A.38 38 weeks gestation of pregnancy
CPT/HCPCS: 01967; 36415; 59200; 76815; 85018; 85025; 86850; 86900; 86901; 88307; A9270; J2270; J2371; J2795; J7120; S0020

== ENCOUNTER 2022-11-09 11:33 | Outpatient (CLI) | payer OTHER, SELFPAY ==
[2022-11-09 19:34] LABS: Chlamydia DNA Amplified* NOT DETECTED (No Detected); GC DNA Amplified* NOT DETECTED (No Detected)
== END 2022-11-09 11:34 | disposition home or self-care (01) ==
LOC: NFLDREF 11:33
PROVIDERS: Visit Provider Registered Nurse
DX: Z11.3 Encounter for screening for infections with a predominantly sexual mode of transmission (principal)
CPT/HCPCS: 87491; 87591

== ENCOUNTER 2022-11-26 17:26 | Outpatient (REF) | payer OTHER, SELFPAY ==
[2022-11-26 22:37] LABS: Free T4 Free Thyroxine* 1.27 ng/dL (0.70-1.85)
[2022-11-26 23:12] LABS: Thyroid Stimulating Hormone* < 0.015 uIU/mL (0.270-4.20)
[2022-11-28 16:26] LABS: Total T3 115 ng/dL (80-200)
== END 2022-11-26 17:27 | disposition home or self-care (01) ==
LOC: NPINS 17:26
PROVIDERS: PCP Internal Medicine; Referring Provider Internal Medicine; Visit Provider Internal Medicine
DX: E05.90 Thyrotoxicosis, unspecified without thyrotoxic crisis or storm (principal)
CPT/HCPCS: 84439; 84443; 84480